=== PATIENT | male | born 1990 | race Caucasian/White ===

== ENCOUNTER 2025-01-14 19:16 | Inpatient (IN) ==
[2025-01-14 20:17] LABS: Appearance Urine Clear (Clear); Bilirubin Urine Negative (Negative); Blood Urine Negative (Negative); Color Urine Yellow; Glucose Urine UA Negative (Negative); Ketones Urine Negative (Negative); Leukocyte Esterase Urine Negative (Negative); Nitrite Urine Negative (Negative); Protein Urine Negative (Negative); Specific Gravity Urine 1.009 (1.000-1.030); Urobilinogen Urine Negative (Negative)
[2025-01-14 20:18] LABS: Basophils # (auto) 0.07 K/uL (0.00-0.20); Basophils % (auto) 1.3 %; Eosinophils # (auto) 0.06 K/uL (0.00-0.50); Eosinophils % (auto) 1.1 %; Hematocrit (blood only) 40.6 % (42.0-52.0); Hemoglobin 13.9 g/dl (14.0-18.0); Immature Granulocytes # (auto) 0.01 K/uL (0.01-0.20); Immature Granulocytes % (auto) 0.2 %; Lymphocytes # (auto) 1.87 K/uL (1.20-3.40); Lymphocytes % (auto) 33.6 %; Mean Corpuscular Hemoglobin 30.8 pg (25.0-34.0); Mean Corpuscular Hgb Conc 34.2 g/dL (32.0-36.0); Mean Corpuscular Volume 89.8 fL (80.0-100.0); Monocytes # (auto) 0.36 K/uL (0.11-0.59); Monocytes % (auto) 6.5 %; Neutrophils % (auto) 57.3 %; Platelet Count 229 K/uL (130-400); RDW Standard Deviation 46.1 fL (36.4-46.3); Red Blood Count 4.52 M/uL (4.70-6.10); White Blood Count 5.57 K/ul (4.8-10.8)
--- NOTE | 2025-01-14 20:20 | Emergency Department Note ---
Impression & Plan Delusions, Paranoid schizophrenia, Alcohol intoxication, Dysfunction of thyroid, Noncompliance ED Provider Note ED Provider Note NAME: BALDO VASQUEZ AGE:34 SEX: Male : 1990 ARRIVES VIA: Private vehicle INFORMANT: Patient ED PROVIDER(s): Charisse Live DO CHIEF COMPLAINT: Mental health evaluation HPI: This is a 34-year-old male presents emergency department with concern for mental health evaluation. Patient states he is a history of paranoid schizophrenia and is concerned that his thyroid dysfunction is contributing to his delusions. He denies SI or HI. He does admit to increasing delusions recently. He states he has previously undergone inpatient mental health treatment. He states he is using "natural treatment" for his schizophrenia. He states he is supposed to be taking Synthroid daily but has not taken that in 2- 1/2 months. He does admit to occasional vaping and alcohol use. He states he did use alcohol earlier tonight. He denies any other recent marijuana or recreational drug use. He denies any other concern for injury or illness. PAST MEDICAL HISTORY:See Below PAST SURGICAL HISTORY:See Below FAMILY HISTORY:See Below SOCIAL HISTORY:See Below HOME MEDICATIONS:See Below ALLERGIES:See Below VITALS:See Below PHYSICAL EXAMINATION: GENERAL: alert, well appearing, well nourished, no distress, non-toxic EYE EXAM: normal conjunctiva, PERRL and EOM's grossly intact OROPHARYNX: no exudate, no erythema, lips, buccal mucosa, and tongue normal and mucous membranes are moist NECK: supple, no nuchal rigidity, no adenopathy, non-tender LUNGS: Clear to auscultation. Normal chest wall mechanics, no w/r/r HEART: no murmurs, S1 normal and S2 normal ABDOMEN: abdomen soft, non-tender, normo-active bowel sounds, no masses, no rebound or guarding. SKIN: no rashes, petechiae, orbruising UPPER EXTREMITIES: upper extremities are grossly normal. FROM, nml pulses b/l. LOWER EXTREMITIES: No pitting edema. FROM, nml pulses b/l. NEURO EXAM: Normal sensorium, cranial nerves II-XII grossly intact, normal speech, no facial droop,nogross weakness of arms, no gross weakness of legs. Gross sensation intact. No ataxia. Vital Signs: reviewed and remarkable Differential Diagnosis: mood disorder, suicidal ideation, anxiety, depression, substance abuse, toxidrome, infection, hypoglycemia, electrolyte abnormalities, ICH as well as others were considered. MEDICAL DECISION MAKING: This is a 34-year-old male presents emerged department for mental health evaluation. Patient with a history of paranoid schizophrenia but also admitted to alcohol use earlier in the evening. Labs and urine collected and sent per protocol. Patient found to have thyroid dysfunction which he does have a history of and admits to noncompliance with his medications over the last 2 to 3 months. Patient also noted to have alcohol intoxication. Patient clinically sober however after several hours patient evaluated by case management. Patient feels he should have inpatient mental health treatment. No SI or HI. Patient does admit to delusions and is not currently taking any medication for his schizophrenia. Patient referred to [facility] by case management after their evaluation. He was accepted to [facility] for additional evaluation, 201 signed by me. I did speak with the on-call pharmacist, Zelalem Early regarding reinitiating his thyroid medication and this recommendation was passed along to the mental health team. Consultation(s): 2015: Patient seen and evaluated by case management. 319: Patient accepted to [facility] He was seen by [facility] liaison. 201 signed by me. ER Treatment Provided: See below Diagnostics Interpreted By Me: -Laboratory studies: As stated above and show below. Triage Nursing Note Reviewed Prior/Outside Records Reviewed Past Med/Surg History Problem List (Updated 01/15/25 @ 14:18 by Mio Osborn MD) Homeless Paranoia Dissociation Hearing voices Alcohol abuse Hypothyroid Trauma and stressor-related disorder Noncompliance (Acute) Dysfunction of thyroid (Acute) Alcohol intoxication (Acute) Paranoid schizophrenia (Acute) Delusions (Acute) Social History Smoking Status: Light tobacco smoker Tobacco Type: Cigarettes Preferred Language: Vietnamese Communication Ability: Effective Government Affairs Researcher Required: No Beliefs That Will Affect Care: None Feels Safe at Home: Yes Gender Identity: Male Assistive Devices: None Allergies Allergies Allergy/AdvReac Type Severity Reaction Status Date / Time bee venom protein (honey bee) Allergy Anaphylaxis Verified 01/14/25 22:53 hydrocodone Allergy Anaphylaxis Verified 01/14/25 22:53 Home Meds Home Medications Medication Instructions Recorded Confirmed No Known Home Medications 01/14/25 01/14/25 Results & Data (ED) Vital Signs Vital Signs - 24 hr 01/14/25 19:41 01/14/25 22:00 01/15/25 02:38 Temperature 36.9 C Temperature Source Oral Pulse Rate 91 H Pulse Rate [Finger] 91 H 62 Pulse Rhythm Regular Pulse Rhythm [Finger] Regular Regular Pulse Strength Normal Pulse Strength [Finger] Normal Normal Respiratory Rate 22 18 18 Respiratory Effort / Characteristics Non-Labored Spontaneous Non-Labored Spontaneous Non-Labored Respiratory Depth Normal Normal Normal Respiratory Pattern Regular Regular Regular Blood Pressure 116/68 Blood Pressure [Left Arm] 115/76 104/64 Blood Pressure Mean 84 Blood Pressure Mean [Left Arm] 89 77 Blood Pressure Position [Left Arm] Lying Pulse Oximetry 98 98 99 Oxygen Delivery Method Room Air Room Air Room Air Sepsis Recent Fever Within 48 Hours No Sepsis New/Unexplained Change in Mental Status No Sepsis Action Taken by Nursing No Action Required Laboratory Data 01/14/25 19:57 01/14/25 19:57 Lab Results 01/14/25 01/14/25 01/14/25 Range/Units 19:50 19:55 19:57 WBC 5.57 (4.8-10.8) K/ul RBC 4.52 L (4.70-6.10) M/uL Hgb 13.9 L (14.0-18.0) g/dl Hct 40.6 L (42.0-52.0) % MCV 89.8 (80.0-100.0) fL MCH 30.8 (25.0-34.0) pg MCHC 34.2 (32.0-36.0) g/dL RDW Std Deviation 46.1 (36.4-46.3) fL RDW Coeff of Samy 14.0 (11.5-14.5) % Plt Count 229 (130-400) K/uL MPV 10.0 (9.4-12.4) fL Immature Gran % (Auto) 0.2 % Neut % (Auto) 57.3 % Lymph % (Auto) 33.6 % Turner % (Auto) 6.5 % Eos % (Auto) 1.1 % Baso % (Auto) 1.3 % Neut # (Auto) 3.20 (1.40-6.50) K/uL Lymph # (Auto) 1.87 (1.20-3.40) K/uL Turner # (Auto) 0.36 (0.11-0.59) K/uL Eos # (Auto) 0.06 (0.00-0.50) K/uL Baso # (Auto) 0.07 (0.00-0.20) K/uL Immature Gran # (Auto) 0.01 (0.01-0.20) K/uL Sodium 141 (136-145) mmol/L Potassium 4.0 (3.5-5.1) mmol/L Chloride 106 (98-107) mmol/L Carbon Dioxide 30 (21-32) mmol/L Anion Gap 5 (3-11) BUN 8 (6-23) mg/dl Creatinine 1.21 (0.6-1.4) mg/dl Est Cr Clr Drug Dosing Not Reportable eGFR 80.58 BUN/Creatinine Ratio 6.6 L (10-20) Glucose 99 (70-99(Fasting)) mg/dl Calcium 9.8 (8.6-10.3) mg/dl Total Bilirubin 0.5 (0.2-1.0) mg/dl AST 25 (13-39) U/L ALT 11 (7-52) U/L Alkaline Phosphatase 51 (34-104) U/L Total Protein 7.7 (6.0-8.3) gm/dl Albumin 5.0 (3.4-5.0) gm/dl Globulin 2.7 (2.5-4.0) gm/dl Albumin/Globulin Ratio 1.9 (0.9-2) TSH 84.554 H (0.300-4.500) uIu/ml Urine Color Yellow Urine Appearance Clear (Clear) Urine pH 6.0 (4.5-7.5) Ur Specific [place] 1.009 (1.000-1.030) Urine Protein Negative (Negative) Urine Glucose (UA) Negative (Negative) Urine Ketones Negative (Negative) Urine Blood Negative (Negative) Urine Nitrite Negative (Negative) Urine Bilirubin Negative (Negative) Urine Urobilinogen Negative (Negative) Ur Leukocyte Esterase Negative (Negative) Salicylates < 3.0 L (3.0-30) mg/dl Urine Opiates Screen Neg (Neg) Ur Methadone, Qual Neg (Neg) Urine Fentanyl Screen Neg (Neg) Acetaminophen < 3 L (10-30) ug/ml Urine Barbiturates Neg (Neg) Ur Phencyclidine (PCP) Neg (Neg) U Amphetamin/Meth Scrn Neg (Neg) MDMA (Ecstasy) Screen Neg (Neg) U Benzodiazepines Scrn Neg (Neg) Ur Cocaine Metabolite Neg (Neg) U Marijuana (THC) Screen Neg (Neg) Ethyl Alcohol mg/dL 170.6 H (<10.0) mg/dl SARS-CoV-2, RNA, NAAT NEGATIVE (NEGATIVE) Administered Medications Aripiprazole (Aripiprazole 5 Mg Tab) 5 mg PO QAM [facility] Stop: 02/14/25 10:44 Last Admin: 01/15/25 11:55 Dose: 5 mg Documented By: TLF Fluoxetine HCl (Fluoxetine Hcl 10 Mg Cap) 10 mg PO QAM [facility] Stop: 02/14/25 10:44 Last Admin: 01/15/25 11:55 Dose: 10 mg Documented By: TLF Discontinued Medications Levothyroxine Sodium (Levothyroxine Sodium 50 Mcg Tablet) 50 mcg PO DAILYBB [facility] Stop: 02/14/25 07:59 Last Admin: 01/15/25 08:35 Dose: 50 mcg Documented By: TLF Nicotine Polacrilex (Nicotine Polacrilex 2 Mg Gum) 1 piece MT Q2H PRN PRN Reason: nicotine withdrawal Stop: 02/13/25 22:04 Last Admin: 01/14/25 22:19 Dose: 1 piece Documented By: EJW Discharge Plan Visit Data Chief Complaint: Mental Health Evaluation Stated Complaint: WANTS TO BE EVALUATED ED Provider: Charisse Live Discharge Problem: Delusions, Paranoid schizophrenia, Alcohol intoxication, Dysfunction of thyroid, Noncompliance Patient Disposition: Admitted As Inpatient Discharge Instructions Interventions: ED Discharge Assessment Last Done: 01/15/25 03:26
[2025-01-14 20:36] LABS: Alanine Aminotransferase 11 U/L (7-52); Albumin Globulin Ratio 1.9 (0.9-2); Alkaline Phosphatase 51 U/L (34-104); Anion Gap 5 (3-11); Aspartate Aminotransferase 25 U/L (13-39); BUN Creatinine Ratio 6.6 (10-20); Bilirubin,Total 0.5 mg/dl (0.2-1.0); Blood Urea Nitrogen 8 mg/dl (6-23); Calcium 9.8 mg/dl (8.6-10.3); Carbon Dioxide 30 mmol/L (21-32); Chloride 106 mmol/L (98-107); Globulin 2.7 gm/dl (2.5-4.0); Glucose 99 mg/dl (70-99(Fasting)); Sodium 141 mmol/L (136-145); Total Protein 7.7 gm/dl (6.0-8.3)
[2025-01-14 20:38] LABS: Acetaminophen < 3 ug/ml (10-30); Salicylate < 3.0 mg/dl (3.0-30)
[2025-01-14 20:56] LABS: Amphetamines+Metham, Urine Neg (Neg); Barbiturates, Urine Neg (Neg); Benzodiazepine, Urine Neg (Neg); Cocaine, Urine Neg (Neg); Fentanyl, Urine Neg (Neg); MDMA (Ecstacy), Urine Neg (Neg); Marijuana, Urine Neg (Neg); Methadone, Urine Neg (Neg); Opiate, Urine Neg (Neg); Phencyclidine, Urine Neg (Neg)
[2025-01-14 21:23] LABS: Thyroid Stimulating Hormone 84.554 uIu/ml (0.300-4.500)
[2025-01-14] MEDS: NICOTINE POLACRILEX 2 MG GUM MT PRN (22:19)
[2025-01-15] MEDS ORDERED: ACETAMINOPHEN 325 MG TAB PO PRN (03:44)
[2025-01-15] MEDS ORDERED: hydrOXYzine HCl 25 MG TAB PO PRN ×2 (03:44)
[2025-01-15] MEDS ORDERED: MAGNESIUM HYDROXIDE SUSP 30 ML UDC PO PRN (03:44)
[2025-01-15] MEDS ORDERED: BISMUTH SUBSALICYLATE 262 MG CHEW PO PRN (03:44)
[2025-01-15] MEDS ORDERED: SODIUM CHLORIDE 0.65% NA SOLN 45 ML (OCEAN) PRN (03:44)
[2025-01-15] MEDS ORDERED: ALUMINUM/MAGNESIUM SUSP 30 ML UDC PO PRN (03:44)
[2025-01-15] MEDS: LEVOTHYROXINE SODIUM 50 MCG TABLET PO SCH (08:35)
[2025-01-15] MEDS: FLUoxetine HCL 10 MG CAP PO SCH (11:55)
[2025-01-15] MEDS: ARIPiprazole 5 MG TAB PO SCH (11:55)
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
[2025-01-16] MEDS: LEVOTHYROXINE SODIUM 100 MCG TABLET PO SCH (07:50)
[2025-01-16 08:24] LABS: Chol HDL Ratio 3.4 (0-5)
[2025-01-16 10:05] LABS: Estimated Average Glucose 117 mg/dl; Hemoglobin A1C 5.7 % (4.5-5.6)
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
[2025-01-16] MEDS: CYANOCOBALAMIN (B-12) 100 MCG TABLET PO SCH (12:25)
[2025-01-16] MEDS: CHOLECALCIFEROL 125 MCG (5,000 UNITS) TAB PO SCH (12:25)
[2025-01-16] MEDS: NICOTINE POLACRILEX 2 MG GUM MT PRN (15:01)
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
== END 2025-01-17 12:45 | disposition home or self-care (01) | DRG 882 ==
LOC: ED 19:16 → 3S 01-15 03:12